=== PATIENT | female | born 1950 | race Two or more races ===

== ENCOUNTER 2022-04-20 15:25 | Inpatient (IN) | payer OTHER ==
[~2022-04-20] VITALS: Ht 152.4 cm; Wt 82.1 kg
--- NOTE | 2022-04-20 15:42 | NUR ---
PTE REFIERE QUE VINO DE LA OFICINA DEL DR ANTHONY POR QUE TIENE EL PULSO ELEVADO, PTE PRESENTA REFERIDO MEDICO DEL DR ANTHONY
--- NOTE | 2022-04-20 17:23 | NUR ---
IV LINE IS STARTED ON PATIENT'S LEFT HAND AND LAB SAMPLES ARE TAKEN AND SALINE LOCK IS PLACED. IV MEDS ARE ADMINISTERED ACCORIDNGLY. PATIENT IS IN BED WITH RAILINGS UP AND CONNECTED TO TELEMETRY AND OXIMETRY. PATIENT HAS PENDING REEVALUTION AND REMAINS IN OBSERVATION FOR ANY CHANGES TO HER CONDITION.
== END 2022-04-23 12:08 | disposition home or self-care (01) | DRG 308 ==
LOC: ER 15:25 → MEDJ 20:23
PROVIDERS: ADMIT Internal Medicine; ATTEND Internal Medicine
PROC: 4A12X4Z Monitoring of Cardiac Electrical Activity, External Approach (ICD-10-PCS; principal; 2022-04-20)
PROC: B24BZZZ Ultrasonography of Heart with Aorta (ICD-10-PCS; 2022-04-20)
DX: I48.0 Paroxysmal atrial fibrillation (principal); I50.33 Acute on chronic diastolic (congestive) heart failure; I25.10 Atherosclerotic heart disease of native coronary artery without angina pectoris; E78.5 Hyperlipidemia, unspecified; Z20.822 Contact with and (suspected) exposure to COVID-19; I12.9 Hypertensive chronic kidney disease with stage 1 through stage 4 chronic kidney disease, or unspecified chronic kidney disease; N18.9 Chronic kidney disease, unspecified

== ENCOUNTER 2022-07-18 07:36 | Outpatient (CLI) | payer OTHER | END 2022-07-18 07:37 | disposition home or self-care (01) | LOC: NUCLEAR 07:36 | PROVIDERS: ATTEND Internal Medicine | DX: I25.118 Atherosclerotic heart disease of native coronary artery with other forms of angina pectoris (principal); I11.0 Hypertensive heart disease with heart failure; I48.0 Paroxysmal atrial fibrillation; I50.1 Left ventricular failure, unspecified | CPT/HCPCS: 78452; 93017; A9500; J0153 ==

== ENCOUNTER 2022-09-07 12:44 | Emergency (ER) | payer OTHER ==
[~2022-09-07] VITALS: Ht 152.4 cm; Wt 85.3 kg
== END 2022-09-07 16:11 | disposition home or self-care (01) ==
LOC: ER 12:44
DX: M12.562 Traumatic arthropathy, left knee (principal); M12.561 Traumatic arthropathy, right knee; T14.90XS Injury, unspecified, sequela; W18.39XS Other fall on same level, sequela

== ENCOUNTER 2022-09-14 16:26 | Emergency (ER) | payer OTHER ==
[~2022-09-14] VITALS: Ht 160 cm; Wt 86.2 kg
[2022-09-14] MEDS ORDERED: ATORVASTATIN CA40 MG (17:21)
[2022-09-14] MEDS ORDERED: LISINOPRIL5 MG (17:22)
[2022-09-14] MEDS ORDERED: AMIODARONE HCL100 MG (17:22)
[2022-09-14] MEDS ORDERED: FUROSEMIDE20 MG (17:22)
[2022-09-14] MEDS ORDERED: METOPROLOL TART50 MG (17:23)
[2022-09-14] MEDS ORDERED: XARELTO20 MG (17:23)
== END 2022-09-14 20:04 | disposition home or self-care (01) ==
LOC: ER 16:26
DX: F41.8 Other specified anxiety disorders (principal); I10 Essential (primary) hypertension

== ENCOUNTER 2022-09-17 08:22 | Inpatient (IN) | payer OTHER ==
[~2022-09-17] VITALS: Ht 152.4 cm; Wt 89.8 kg
[~2022-09-17 08:22] MED LIST: AMIODARONE HCL100 MG; ATORVASTATIN CA40 MG; FUROSEMIDE20 MG; LISINOPRIL5 MG; METOPROLOL TART50 MG; XARELTO20 MG
== END 2022-09-22 20:32 | disposition home or self-care (01) | DRG 343 ==
LOC: ER 08:22 → SURH 19:15 → SURG 19:15 → SURH 19:44
PROVIDERS: Surgery; ADMIT Internal Medicine; ATTEND Internal Medicine
PROC: BW21ZZZ Computerized Tomography (CT Scan) of Abdomen and Pelvis (ICD-10-PCS; 2022-09-17)
PROC: B246ZZZ Ultrasonography of Right and Left Heart (ICD-10-PCS; 2022-09-18)
PROC: 0DTJ4ZZ Resection of Appendix, Percutaneous Endoscopic Approach (ICD-10-PCS; principal; 2022-09-20 19:15)
DX: K35.891 Other acute appendicitis without perforation, with gangrene (principal); I48.91 Unspecified atrial fibrillation; I11.0 Hypertensive heart disease with heart failure; E78.49 Other hyperlipidemia; N18.9 Chronic kidney disease, unspecified

== ENCOUNTER 2022-11-29 17:53 | Emergency (ER) | payer OTHER ==
[~2022-11-29] VITALS: Ht 152.4 cm; Wt 85.3 kg
[~2022-11-29 17:53] MED LIST changes: +TUSNEL LIQUID178 ML PO; +XOPENEX CO1.25 MG/0. IH; +ZITHROMAX500 MG PO
[2022-11-29] MEDS ORDERED: XARELTO20 MG PO (18:13)
[2022-11-29 20:53] LABS: INR 1.6
[2022-11-29 21:00] LABS: D DIMER 0.59 MG/L
[2022-11-29 21:04] LABS: PROTHROMBIN TIME 16.2 SECONDS (9.0-11.5)
[2022-11-29 21:05] LABS: PARTIAL THROMBOPLASTIN TIME 40.5 SECONDS (22.0-34.0)
== END 2022-11-29 21:54 | disposition home or self-care (01) ==
LOC: ER 17:53
PROVIDERS: General Practice
DX: M79.604 Pain in right leg (principal); Z88.6 Allergy status to analgesic agent
CPT/HCPCS: 36415; 96372; 99283; J2360

== ENCOUNTER 2023-05-11 15:57 | Emergency (ER) | payer OTHER ==
[~2023-05-11] VITALS: Ht 152.4 cm; Wt 81.6 kg
[~2023-05-11 15:57] MED LIST changes: +XARELTO20 MG PO
[2023-05-11] MEDS ORDERED: LISINOPRIL10 MG PO (16:53)
[2023-05-11] MEDS ORDERED: ZESTRIL10 M1 (16:57)
[2023-05-11] MEDS ORDERED: TOPROL XL25 M1 (16:57)
[2023-05-11] MEDS ORDERED: LASIX20 MG (16:57)
[2023-05-11] MEDS ORDERED: ATORVASTATIN CA10 MG PO (16:58)
[2023-05-11 18:31] LABS: HEMATOCRIT 42.3 % (36.0-45.00); HEMOGLOBIN 14.2 g/dL (12.0-15.00); MEAN CELL VOLUME 94.3 fL (80.00-100.00); MEAN CORPUSCULAR HEMOGLOBIN 31.8 pg (27.00-32.0); MEAN CORPUSCULAR HGB CONC 33.7 g/dl (32.0-36.0); PLATELET COUNT 177 K/uL (150-450); RED BLOOD COUNT 4.48 M/uL (4.00-6.00); RED CELL DISTRIBUTION WIDTH 15.8 % (11.5-14.5)
[2023-05-11 18:37] LABS: CALCIUM 9.6 mg/dL (8.5-10.1); CREATININE SERUM 1.38 mg/dL (0.55-1.02); GFR 37.37; POTASSIUM 5.02 mEq/L (3.5-5.1)
== END 2023-05-11 21:36 | disposition home or self-care (01) ==
LOC: ER 15:58
PROVIDERS: Emergency Medicine
DX: R53.81 Other malaise (principal); R05.9 Cough, unspecified; R06.02 Shortness of breath; I10 Essential (primary) hypertension; Z88.6 Allergy status to analgesic agent

== ENCOUNTER 2023-09-26 06:26 | Inpatient (IN) | payer OTHER ==
[~2023-09-26] VITALS: Ht 157.5 cm; Wt 90.7 kg
[~2023-09-26 06:26] MED LIST changes: +AMIODARONE HCL200 MG PO; +ATORVASTATIN CA10 MG PO; +DOLOGESIC-DF 51 EACH PO; +FUROSEMIDE20 MG PO; +LASIX20 MG; +LIPITOR40 M1 PO; +LISINOPRIL10 MG PO; +TOPROL XL25 M1; +TOPROL XL50 M1 PO; +XARELTO15 MG PO; +XARELTO20 M1 PO; +ZESTRIL10 M1
[2023-09-26] MEDS ORDERED: FUROsemide 40 MG/4 ML VIAL ONE (06:59)
[2023-09-26] MEDS ORDERED: NITROGLYCERIN IN 5 % DEXTROSE 50 MG/250 ML BOTTLE IV ONE (06:59)
[2023-09-26] MEDS ORDERED: FUROsemide 40 MG/4 ML VIAL IV STA (06:59)
[2023-09-26] MEDS ORDERED: NITROGLYCERIN 250 ML IV SCH (07:00)
[2023-09-26 07:10] LABS: ABG PH 7.433 (7.35-7.45); ABG PO2 64.7 mmHg (80-100); ABG pCO2 36.6 mmHg (35-45); BASE EXCESS 0 mmol/l; BICARBONATE 23.9 mmol/l (23-25)
[2023-09-26 07:25] LABS: HEMATOCRIT 45.5 % (36.0-45.00); HEMOGLOBIN 15.1 g/dL (12.0-15.00); MEAN CELL VOLUME 96.9 fL (80.00-100.00); MEAN CORPUSCULAR HEMOGLOBIN 32.3 pg (27.00-32.0); MEAN CORPUSCULAR HGB CONC 33.3 g/dl (32.0-36.0); PLATELET COUNT 202 K/uL (150-450); RED BLOOD COUNT 4.69 M/uL (4.00-6.00); RED CELL DISTRIBUTION WIDTH 14.1 % (11.5-14.5)
[2023-09-26 07:58] LABS: URINE BACTERIA 11.3 uL (0.0-1933); URINE RBC 16.7 uL (0.0-20.8); URINE WBC 1.8 uL (0.0-23.2)
[2023-09-26 08:04] LABS: ALBUMIN 3.9 gm/dL (3.4-5.0); BILIRUBIN TOTAL 1.01 mg/dL (0.3-1.2); CALCIUM 9.8 mg/dL (8.5-10.1); CREATININE SERUM 1.5 mg/dL (0.55-1.02); GFR 33.85; GLOBULINA 3.7 G/DL (2.4-3.5); POTASSIUM 3.55 mEq/L (3.5-5.1); TOTAL PROTEIN 7.6 gm/dL (6.4-8.2)
[2023-09-26 08:05] LABS: URINE BILIRRUBIN NEGATIVE (NEGATIVE); URINE BLOOD TRACE; URINE GLUCOSE NEGATIVE (NEGATIVE); URINE KETONE NEGATIVE (NEGATIVE); URINE LEUKOCYTE NEGATIVE; URINE NITRATE NEGATIVE; URINE PROTEIN 30 (NEGATIVE); URINE UROBILINOGEN 0.2 E.U./dl
[2023-09-26 08:07] LABS: INR 1.85
[2023-09-26 08:09] LABS: allen test SATISFACTORY; o2 21 %; puncture site RADIAL LEFT
[2023-09-26 08:09] LABS: URINE APPEARANCE CLEAR; URINE COLOR YELLOW
[2023-09-26 08:31] LABS: PARTIAL THROMBOPLASTIN TIME 45.8 SECONDS (22.0-34.0); PROTHROMBIN TIME 19.3 SECONDS (9.0-11.5)
[2023-09-26] MEDS ORDERED: FUROsemide 20 MG/2 ML VIAL IV SCH (09:00)
[2023-09-26] MEDS ORDERED: AMIODARONE HCL 200 MG TABLET PO SCH (09:00)
[2023-09-26] MEDS ORDERED: NITROGLYCERIN IN 5 % DEXTROSE 250 ML IV SCH ×2 (09:15→10:00)
[2023-09-26] MEDS ORDERED: FAMOTIDINE/PF 20 MG in 0.9 % SODIUM CHLORIDE 100 ML IV SCH (10:07)
[2023-09-26] MEDS ORDERED: 0.9 % SODIUM CHLORIDE 1,000 ML IV SCH (10:15)
[2023-09-26] MEDS ORDERED: RIVAROXABAN 15 MG TABLET PO SCH (10:22)
[2023-09-26] MEDS ORDERED: CEFTRIAXONE SODIUM 2,000 MG in 0.9 % SODIUM CHLORIDE 100 ML IV SCH (10:34)
[2023-09-26] MEDS ORDERED: CEFTRIAXONE SODIUM 2,000 MG VIAL ONE (11:35)
[2023-09-26] MEDS ORDERED: FAMOTIDINE/PF 20 MG/2 ML VIAL ONE (11:40)
[2023-09-26 13:20] LABS: ALBUMIN 3.8 gm/dL (3.4-5.0); CALCIUM 9.8 mg/dL (8.5-10.1); CHOL HDL RATIO 2.3 (0-5.0); CREATININE SERUM 1.38 mg/dL (0.55-1.02); GFR 37.27; MAGNESIUM 1.9 mg/dL (1.8-2.4); POTASSIUM 3.71 mEq/L (3.5-5.1)
[2023-09-26] MEDS ORDERED: AMLODIPINE BESYLATE 5 MG TABLET PO ONE (14:30)
[2023-09-26] MEDS ORDERED: hydrALAZINE HCL 25 MG TABLET PO SCH (17:00)
[2023-09-26] MEDS ORDERED: AMLODIPINE BESYLATE 5 MG TABLET PO SCH (21:00)
[2023-09-26] MEDS ORDERED: CARVEDILOL 3.125 MG TABLET PO SCH (21:00)
[2023-09-27] MEDS ORDERED: FAMOTIDINE/PF 20 MG/2 ML VIAL ONE (08:27)
[2023-09-27] MEDS ORDERED: FUROsemide 20 MG/2 ML VIAL IV SCH ×2 (09:00)
[2023-09-27] MEDS ORDERED: VANCOMYCIN HCL 1,000 MG VIAL IV SCH (17:00)
[2023-09-27] MEDS ORDERED: CEFEPIME HCL 2,000 MG VIAL IV SCH (21:00)
[2023-09-28 06:25] LABS: HEMATOCRIT 43.3 % (36.0-45.00); HEMOGLOBIN 14.7 g/dL (12.0-15.00); MEAN CELL VOLUME 95.1 fL (80.00-100.00); MEAN CORPUSCULAR HEMOGLOBIN 32.4 pg (27.00-32.0); PLATELET COUNT 162 K/uL (150-450); RED BLOOD COUNT 4.55 M/uL (4.00-6.00)
[2023-09-28 07:06] LABS: BILIRUBIN TOTAL 1.68 mg/dL (0.3-1.2); CREATININE SERUM 1.18 mg/dL (0.55-1.02); GFR 44.65; GLOBULINA 3.3 G/DL (2.4-3.5); MAGNESIUM 1.7 mg/dL (1.8-2.4); PHOSPHOROUS 3.4 mg/dL (2.5-4.9); POTASSIUM 3.87 mEq/L (3.5-5.1); TOTAL PROTEIN 6.3 gm/dL (6.4-8.2)
[2023-09-28 07:07] LABS: C-REACTIVE PROTEIN 8.89 MG/DL (0.00-0.29)
[2023-09-28] MEDS ORDERED: FUROsemide 20 MG/2 ML VIAL IV SCH (09:00)
[2023-09-28] MEDS ORDERED: CLOPIDOGREL BISULFATE 75 MG TABLET PO SCH (17:00)
[2023-09-29] MEDS ORDERED: FAMOtidine 20 MG TABLET PO SCH (09:00)
[2023-09-29] MEDS ORDERED: ISOSORBIDE MONONITRATE 30 MG TABLET PO SCH (09:00)
[2023-09-30 08:18] LABS: HEMATOCRIT 40.8 % (36.0-45.00); HEMOGLOBIN 13.7 g/dL (12.0-15.00); MEAN CELL VOLUME 95.4 fL (80.00-100.00); MEAN CORPUSCULAR HGB CONC 33.6 g/dl (32.0-36.0); PLATELET COUNT 171 K/uL (150-450); RED BLOOD COUNT 4.28 M/uL (4.00-6.00)
[2023-09-30 08:45] LABS: ALBUMIN 2.5 gm/dL (3.4-5.0); BILIRUBIN TOTAL 0.99 mg/dL (0.3-1.2); CREATININE SERUM 1.77 mg/dL (0.55-1.02); GFR 27.97; GLOBULINA 3.1 G/DL (2.4-3.5); POTASSIUM 4.47 mEq/L (3.5-5.1); TOTAL PROTEIN 5.6 gm/dL (6.4-8.2)
[2023-09-30 08:56] LABS: C-REACTIVE PROTEIN 8.1 MG/DL (0.00-0.29)
[2023-10-01] MEDS ORDERED: LACTULOSE 20 G/30 ML BLIST.PACK PO SCH (17:45)
[2023-10-02] MEDS ORDERED: DOCUSATE CALCIUM 240 MG CAPSULE PO PRN (15:00)
[2023-10-03 08:50] LABS: ALBUMIN 2.5 gm/dL (3.4-5.0); BILIRUBIN TOTAL 0.89 mg/dL (0.3-1.2); CALCIUM 9.2 mg/dL (8.5-10.1); CREATININE SERUM 1.22 mg/dL (0.55-1.02); GFR 42.97; GLOBULINA 3.4 G/DL (2.4-3.5); POTASSIUM 4.11 mEq/L (3.5-5.1); TOTAL PROTEIN 5.9 gm/dL (6.4-8.2)
== END 2023-10-03 14:35 | disposition designated cancer center or children's hospital (05) | DRG 281 ==
LOC: ER 06:28 → ICU 10:36 → SEC-K 10:36 → MEDJ 12:01 → ICU-2 14:35 → ICU 09-27 03:52 → MEDJ 10-01 19:28
PROVIDERS: General Practice; Internal Medicine Infectious Disease; ADMIT Internal Medicine; ATTEND Internal Medicine
PROC: B24BZZZ Ultrasonography of Heart with Aorta (ICD-10-PCS; principal; 2023-09-26)
PROC: 4A12X4Z Monitoring of Cardiac Electrical Activity, External Approach (ICD-10-PCS; 2023-10-01)
DX: I11.0 Hypertensive heart disease with heart failure (principal); L03.115 Cellulitis of right lower limb; I21.4 Non-ST elevation (NSTEMI) myocardial infarction; L03.116 Cellulitis of left lower limb; I50.9 Heart failure, unspecified; E78.5 Hyperlipidemia, unspecified; E66.9 Obesity, unspecified; I48.91 Unspecified atrial fibrillation; I73.9 Peripheral vascular disease, unspecified

== ENCOUNTER 2023-12-07 17:30 | Inpatient (IN) | payer OTHER ==
[~2023-12-07] VITALS: Ht 157.5 cm; Wt 108.9 kg
--- NOTE | 2023-12-07 17:46 | NUR ---
PTE ALERTA Y ORIENTADA X 3 ESFERAS QUIEN REFIERE DESDE HACE 2 MENEZES ASMA Y PRESION ELEVADA.AL MOMENTO PTE [place] MUSCULOS ACCESORIOS PARA RESPIRAR Y NO HABLA EN ORACIONES COMPLETAS.SE AIDAN BP MANUAL 150/80.SE NOTIFICA A DR ANN Y SE UBICA EN AU.
[2023-12-07] MEDS ORDERED: LEVALBUTEROL HCL 0.63 MG/3 ML SOLUTION IH ONE (18:00)
--- NOTE | 2023-12-07 18:08 | NUR ---
SE ORIENTA A PACIENTE SOBRE TX MEDICO, REFIERE ENTENDER. SE REALIZAN MUESTRAS DE LABORATORIO BAJO MEDIDAS ASEPTICAS. SE NOTIFICA TERAPIA RESPIRATORIA Y ABG. SE COORDINA CHARLY X. PACIENTE MANEJADA POR . PENDIENTE RE-EVALUACION MEDICA.
[2023-12-07 18:13] LABS: HEMATOCRIT 39.5 % (36.0-45.00); HEMOGLOBIN 13.3 g/dL (12.0-15.00); MEAN CELL VOLUME 95.1 fL (80.00-100.00); MEAN CORPUSCULAR HEMOGLOBIN 32.1 pg (27.00-32.0); MEAN CORPUSCULAR HGB CONC 33.7 g/dl (32.0-36.0); PLATELET COUNT 204 K/uL (150-450); RED BLOOD COUNT 4.16 M/uL (4.00-6.00); RED CELL DISTRIBUTION WIDTH 15.7 % (11.5-14.5)
[2023-12-07 18:45] LABS: ALBUMIN 3.5 gm/dL (3.4-5.0); BILIRUBIN TOTAL 0.8 mg/dL (0.3-1.2); CALCIUM 9.6 mg/dL (8.5-10.1); CREATININE SERUM 1.28 mg/dL (0.55-1.02); GFR 40.65; GLOBULINA 3.4 G/DL (2.4-3.5); POTASSIUM 4.85 mEq/L (3.5-5.1); TOTAL PROTEIN 6.9 gm/dL (6.4-8.2)
--- NOTE | 2023-12-07 19:06 | NUR ---
SE UBICA PTE EN UNIDAD DE CHEST PAIN #18, EN CAMA BAJA DIONI BARANDAS ELEVADAS POR SEGURIDAD. SE CONECTA A MONITOR CARDIACO Y OXIMETRIA DE PULSO CONTINUA. SE CANALIZA X2 EN ANTE BRAZO DERECHO ANGIO #22 Y EN MANO IZQUIERDA ANGIO #22.
--- NOTE | 2023-12-07 20:10 | NUR ---
SE NOTIFICA A DR ANN BP 190/100 MMHG. SE ADMINISTRA LASIX 40MG Y SE INSERFA GÓMEZ BAJO MEDIDAS ESTERILES
[2023-12-07] MEDS ORDERED: FUROsemide 40 MG/4 ML VIAL IV ONE (20:15)
[2023-12-07] MEDS ORDERED: ENALAPRILAT DIHYDRATE 2.5 MG/2 ML VIAL IV ONE (20:30)
[2023-12-07 20:34] LABS: ABG PH 7.346 (7.35-7.45); ABG PO2 88.8 mmHg (80-100); ABG pCO2 48.6 mmHg (35-45); BASE EXCESS -0.3 mmol/l; SaO2 96.2 %; Tco2 27.5 mmol/l
[2023-12-07 20:36] LABS: allen test SATISFACTORY; o2 50 %; puncture site RADIAL RIGHT
[2023-12-07 20:58] LABS: INR 1.27; PARTIAL THROMBOPLASTIN TIME 33.5 SECONDS (22.0-34.0); PROTHROMBIN TIME 13.6 SECONDS (9.0-11.5)
[2023-12-07 21:01] LABS: PH,URINE 5.5 (5.0-8.0); URINE APPEARANCE Clear; URINE BILIRRUBIN Negative (NEGATIVE); URINE BLOOD Negative; URINE COLOR Yellow; URINE GLUCOSE Negative (NEGATIVE); URINE KETONE Negative (NEGATIVE); URINE LEUKOCYTE Negative; URINE NITRATE Negative
[2023-12-07 21:04] LABS: URINE BACTERIA 28.9 uL (0.0-1933); URINE EPITHELIAL CELLS 10.9 uL (0.0-38.8); URINE RBC 5.4 uL (0.0-20.8); URINE WBC 4.1 uL (0.0-23.2)
[2023-12-07 21:16] LABS: URINE CAST 0.91 uL (0.0-1.40); URINE PROTEIN 100 (NEGATIVE)
[2023-12-07] MEDS ORDERED: INSULIN LISPRO 1,000 UNIT/10 ML UNITS SUBCUTANEO PRN (23:00)
[2023-12-07] MEDS ORDERED: DEXTROSE 50 % IN WATER 0.5 G/ML DISP.SYRIN IV PRN (23:00)
[2023-12-07] MEDS ORDERED: NITROGLYCERIN IN 5 % DEXTROSE 250 ML IV SCH (23:08)
[2023-12-07] MEDS ORDERED: ATORVASTATIN CALCIUM 40 MG TABLET PO SCH (23:09)
[2023-12-07] MEDS ORDERED: CEFTRIAXONE SODIUM 1,000 MG VIAL IV SCH (23:11)
[2023-12-07] MEDS ORDERED: MORPHINE SULFATE 2 MG/ML CARTRIDGE IV PRN (23:15)
[2023-12-07] MEDS ORDERED: ONDANSETRON HCL 4 MG in DEXTROSE 5 % IN WATER 50 ML IV PRN (23:15)
[2023-12-07] MEDS ORDERED: ACETAMINOPHEN 500 MG GEL..CAP PO PRN (23:15)
[2023-12-08] VITALS (16 sets, daily range): BP systolic 119–146; BP diastolic 80–102; O2SAT 96–99
[2023-12-08] MEDS ORDERED: IPRATROPIUM BROMIDE 0.5 MG/2.5 ML AMPUL.NEB IH SCH
[2023-12-08] MEDS ORDERED: METHYLPREDNISOLONE SOD SUCC 40 MG VIAL IV SCH (01:00)
[2023-12-08] MEDS ORDERED: LEVALBUTEROL HCL 1.25 MG/3 ML SOLUTION IH SCH (01:00)
[2023-12-08 01:14] LABS: ABG PH 7.399 (7.35-7.45); ABG pCO2 50.4 mmHg (35-45); BASE EXCESS 4.5 mmol/l; BICARBONATE 30.5 mmol/l (23-25); SaO2 92.3 %
[2023-12-08 05:57] LABS: HEMATOCRIT 40.2 % (36.0-45.00); HEMOGLOBIN 13.4 g/dL (12.0-15.00); MEAN CORPUSCULAR HEMOGLOBIN 31.7 pg (27.00-32.0); MEAN CORPUSCULAR HGB CONC 33.4 g/dl (32.0-36.0); PLATELET COUNT 196 K/uL (150-450); RED BLOOD COUNT 4.23 M/uL (4.00-6.00); RED CELL DISTRIBUTION WIDTH 15.3 % (11.5-14.5)
[2023-12-08 06:11] LABS: INR 1.18; PARTIAL THROMBOPLASTIN TIME 30.7 SECONDS (22.0-34.0); PROTHROMBIN TIME 12.7 SECONDS (9.0-11.5)
[2023-12-08 06:18] LABS: ALBUMIN 3.3 gm/dL (3.4-5.0); BILIRUBIN TOTAL 0.84 mg/dL (0.3-1.2); BILIRUBIN,CONJUGATED 0.32 mg/dL (0.0-0.2); BILIRUBIN,UNCONJUGATED 0.52 mg/dL (0.0-0.6); CHOL HDL RATIO 2.4 (0-5.0); CREATININE SERUM 0.91 mg/dL (0.55-1.02); GFR 60.26; GLOBULINA 3.5 G/DL (2.4-3.5); POTASSIUM 4.04 mEq/L (3.5-5.1); TOTAL PROTEIN 6.8 gm/dL (6.4-8.2)
[2023-12-08 06:19] LABS: C-REACTIVE PROTEIN 1.48 MG/DL (0.00-0.29)
[2023-12-08 06:20] LABS: CKMB 3.4 NG/ML (0.5-3.6)
[2023-12-08 06:24] LABS: ERYTHROCYTE SEDIMENTATION RATE 43 mm/hr
[2023-12-08 06:33] LABS: allen test SATISFACTORY; o2 21 %; puncture site RADIAL RIGHT
[2023-12-08 08:46] LABS: URINE APPEARANCE Clear; URINE BILIRRUBIN Negative (NEGATIVE); URINE BLOOD Large; URINE COLOR Yellow; URINE GLUCOSE Negative (NEGATIVE); URINE KETONE Negative (NEGATIVE); URINE LEUKOCYTE Negative; URINE NITRATE Negative; URINE PROTEIN Trace (NEGATIVE)
[2023-12-08 08:47] LABS: URINE BACTERIA 41.5 uL (0.0-1933); URINE RBC 1795.9 uL (0.0-20.8); URINE WBC 8.4 uL (0.0-23.2)
[2023-12-08 08:54] LABS: URINE CAST 0.45 uL (0.0-1.40)
[2023-12-08] MEDS ORDERED: FUROsemide 20 MG/2 ML VIAL IV SCH (09:00)
[2023-12-08] MEDS ORDERED: FAMOTIDINE/PF 20 MG in 0.9 % SODIUM CHLORIDE 8 ML IV PUSH SCH (09:00)
[2023-12-08] MEDS ORDERED: AMIODARONE HCL 200 MG TABLET PO SCH (09:00)
[2023-12-08] MEDS ORDERED: RIVAROXABAN 15 MG TABLET PO SCH (09:00)
[2023-12-08] MEDS ORDERED: METOPROLOL TARTRATE 50 MG TABLET PO SCH (09:00)
[2023-12-09] VITALS (10 sets, daily range): BP systolic 95–126; BP diastolic 62–75; O2SAT 90–98
[2023-12-10] MEDS ORDERED: HALOPERIDOL LACTATE 2 MG/ML ML PO ONE ×2 (02:45→05:30)
[2023-12-10 06:12] VITALS: O2SAT 87
[2023-12-10] MEDS ORDERED: LORazepam 1 MG TABLET PO PRN (07:00)
[2023-12-10] MEDS ORDERED: FUROsemide 20 MG/2 ML VIAL IV SCH (09:00)
[2023-12-10] MEDS ORDERED: NITROGLYCERIN IN 5 % DEXTROSE 250 ML IV SCH (09:00)
[2023-12-10 11:00] VITALS: BP 140/93; O2SAT 92
[2023-12-10 18:32] VITALS: BP 140/83; O2SAT 98
[2023-12-11] VITALS (9 sets, daily range): BP systolic 100–144; BP diastolic 74–79; O2SAT 94–100
[2023-12-12] VITALS (8 sets, daily range): BP systolic 100–152; BP diastolic 68–82; O2SAT 90–100
[2023-12-12] MEDS ORDERED: ISOSORBIDE MONONITRATE 30 MG TABLET PO NR (13:00)
[2023-12-12 21:02] LABS: ABG PH 7.454 (7.35-7.45); ABG pCO2 55.5 mmHg (35-45)
[2023-12-12 21:03] LABS: ABG PO2 56.5 mmHg (80-100); BASE EXCESS 11.7 mmol/l; SaO2 91.4 %; Tco2 39.7 mmol/l; allen test SATISFACTORY; o2 21 %; puncture site RADIAL RIGHT
[2023-12-13] VITALS (9 sets, daily range): BP systolic 90–123; BP diastolic 70–91; O2SAT 90–100
[2023-12-13] MEDS ORDERED: ISOSORBIDE MONONITRATE 30 MG TABLET PO SCH (09:00)
[2023-12-13 13:49] LABS: ABG PO2 61.6 mmHg (80-100); ABG pCO2 45.4 mmHg (35-45); BASE EXCESS 10.9 mmol/l; BICARBONATE 35.4 mmol/l (23-25); SaO2 94.2 %; Tco2 36.8 mmol/l; allen test SATISFACTORY; o2 21 %; puncture site RADIAL LEFT
[2023-12-14 02:00] VITALS: O2SAT 99
[2023-12-14 02:39] VITALS: BP 100/70; O2SAT 99
[2023-12-14 06:46] VITALS: O2SAT 100
[2023-12-14 08:11] VITALS: BP 115/83; O2SAT 99
[2023-12-14] MEDS ORDERED: FUROsemide 20 MG TABLET PO SCH (09:00)
[2023-12-14 11:34] VITALS: O2SAT 100
[2023-12-14 13:30] VITALS: O2SAT 98
== END 2023-12-14 17:17 | disposition home or self-care (01) | DRG 291 ==
LOC: ER 17:32 → ICU-2 23:36 → MEDI 12-08 11:41
PROVIDERS: Emergency Medicine; General Practice; Internal Medicine; ADMIT Internal Medicine; ATTEND Internal Medicine
PROC: B24BZZZ Ultrasonography of Heart with Aorta (ICD-10-PCS; 2023-12-07)
PROC: 4A12X4Z Monitoring of Cardiac Electrical Activity, External Approach (ICD-10-PCS; principal; 2023-12-08)
PROC: BW28ZZZ Computerized Tomography (CT Scan) of Head (ICD-10-PCS; 2023-12-10)
DX: I11.0 Hypertensive heart disease with heart failure (principal); I50.33 Acute on chronic diastolic (congestive) heart failure; J81.1 Chronic pulmonary edema; R09.02 Hypoxemia; E78.5 Hyperlipidemia, unspecified; I48.0 Paroxysmal atrial fibrillation; R41.82 Altered mental status, unspecified; F43.20 Adjustment disorder, unspecified; I25.10 Atherosclerotic heart disease of native coronary artery without angina pectoris

== ENCOUNTER 2024-01-19 14:50 | Inpatient (IN) | payer OTHER ==
[~2024-01-19] VITALS: Ht 152.4 cm; Wt 86.2 kg
[2024-01-19] MEDS ORDERED: 0.9 % SODIUM CHLORIDE 1,000 ML IV ONE (17:00)
[2024-01-19] MEDS ORDERED: FAMOtidine 10 MG/ML (4ML VIAL) IV ONE (17:00)
[2024-01-19] MEDS ORDERED: FAMOTIDINE/PF 20 MG/2 ML VIAL ONE (17:00)
[2024-01-19 17:33] LABS: MEAN CELL VOLUME 96.5 fL (80.00-100.00); MEAN CORPUSCULAR HGB CONC 32.9 g/dl (32.0-36.0); PLATELET COUNT 263 K/uL (150-450); RED BLOOD COUNT 2.23 M/uL (4.00-6.00); RED CELL DISTRIBUTION WIDTH 15.9 % (11.5-14.5)
[2024-01-19 17:37] LABS: HEMATOCRIT 21.6 % (36.0-45.00); MEAN CORPUSCULAR HEMOGLOBIN 31.8 pg (27.00-32.0)
[2024-01-19 17:38] LABS: HEMOGLOBIN 7.1 g/dL (12.0-15.00)
[2024-01-19 17:53] LABS: BILIRUBIN TOTAL 0.62 mg/dL (0.3-1.2); CALCIUM 9.1 mg/dL (8.5-10.1); CREATININE SERUM 1.56 mg/dL (0.55-1.02); GFR 32.35; POTASSIUM 4.63 mEq/L (3.5-5.1)
[2024-01-19 18:41] LABS: INR 1.37; PARTIAL THROMBOPLASTIN TIME 26.6 SECONDS (22.0-34.0); PROTHROMBIN TIME 14.6 SECONDS (9.0-11.5)
[2024-01-19 18:47] LABS: ABG PH 7.462 (7.35-7.45); ABG PO2 78.5 mmHg (80-100); ABG pCO2 34.7 mmHg (35-45); BICARBONATE 24.2 mmol/l (23-25); SaO2 96.3 %; Tco2 25.3 mmol/l; allen test SATISFACTORY; puncture site RADIAL RIGHT
[2024-01-19 18:48] LABS: o2 21 %
[2024-01-19 20:23] LABS: URINE APPEARANCE Clear; URINE BILIRRUBIN Negative (NEGATIVE); URINE BLOOD Negative; URINE COLOR Yellow; URINE GLUCOSE Negative (NEGATIVE); URINE KETONE Negative (NEGATIVE); URINE LEUKOCYTE Negative; URINE NITRATE Negative; URINE PROTEIN Negative (NEGATIVE)
[2024-01-19 20:27] LABS: URINE BACTERIA 221.2 uL (0.0-1933); URINE EPITHELIAL CELLS 5.3 uL (0.0-38.8)
[2024-01-19 20:31] LABS: URINE CAST 0.14 uL (0.0-1.40); URINE RBC 1.1 uL (0.0-20.8)
[2024-01-19] MEDS ORDERED: ACETAMINOPHEN 325 MG TABLET PO PRN (22:00)
[2024-01-19] MEDS ORDERED: 0.9 % SODIUM CHLORIDE 1,000 ML IV SCH (22:00)
[2024-01-20 06:20] VITALS: BP 82/49; O2SAT 97
[2024-01-20] MEDS ORDERED: FUROsemide 20 MG TABLET PO SCH (09:00)
[2024-01-20] MEDS ORDERED: SOD FERRIC GLUC COMPLX/SUCROSE 62.5 MG in 0.9 % SODIUM CHLORIDE 50 ML IV SCH (09:00)
[2024-01-20] MEDS ORDERED: AMIODARONE HCL 200 MG TABLET PO SCH (09:00)
[2024-01-20] MEDS ORDERED: PANTOPRAZOLE SODIUM 40 MG/VIAL VIAL IV SCH (09:00)
[2024-01-20] MEDS ORDERED: RIVAROXABAN 15 MG TABLET PO SCH (09:00)
[2024-01-20] MEDS ORDERED: METOPROLOL TARTRATE 50 MG TABLET PO SCH (09:00)
[2024-01-20 09:30] VITALS: BP 80/40; O2SAT 95
[2024-01-20] MEDS ORDERED: ATORVASTATIN CALCIUM 40 MG TABLET PO SCH (17:00)
[2024-01-20 18:53] VITALS: BP 88/50; O2SAT 95
[2024-01-21 00:40] VITALS: BP 99/62; O2SAT 98
[2024-01-21 08:46] VITALS: BP 99/58; O2SAT 100
[2024-01-21 14:29] LABS: CALCIUM 8.4 mg/dL (8.5-10.1); CREATININE SERUM 1.36 mg/dL (0.55-1.02); GFR 37.9; POTASSIUM 4.32 mEq/L (3.5-5.1)
[2024-01-21] MEDS ORDERED: SODIUM CHLORIDE 0.45 % 1,000 ML IV SCH (17:00)
[2024-01-21 18:55] VITALS: BP 140/70
[2024-01-22 01:58] VITALS: BP 121/57; O2SAT 98
[2024-01-22 07:15] LABS: HEMATOCRIT 27.7 % (36.0-45.00); MEAN CELL VOLUME 93.5 fL (80.00-100.00); MEAN CORPUSCULAR HGB CONC 33.7 g/dl (32.0-36.0); PLATELET COUNT 184 K/uL (150-450); RED BLOOD COUNT 2.96 M/uL (4.00-6.00); RED CELL DISTRIBUTION WIDTH 15.7 % (11.5-14.5)
[2024-01-22 07:16] LABS: HEMOGLOBIN 9.3 g/dL (12.0-15.00); MEAN CORPUSCULAR HEMOGLOBIN 31.4 pg (27.00-32.0)
[2024-01-22 07:41] VITALS: BP 108/75
[2024-01-22 08:31] LABS: FERRITIN 93.6 NG/ML (8-252)
[2024-01-22 09:01] LABS: FOLIC ACID 13.84 ng/ml (4.78-20)
[2024-01-22 17:28] VITALS: BP 120/80; O2SAT 96
[2024-01-23 01:32] VITALS: BP 92/59; O2SAT 100
[2024-01-23 06:39] LABS: HEMATOCRIT 24.7 % (36.0-45.00); MEAN CELL VOLUME 95.1 fL (80.00-100.00); MEAN CORPUSCULAR HGB CONC 33.7 g/dl (32.0-36.0); PLATELET COUNT 178 K/uL (150-450)
[2024-01-23 06:48] LABS: MEAN CORPUSCULAR HEMOGLOBIN 31.9 pg (27.00-32.0)
[2024-01-23 06:49] LABS: HEMOGLOBIN 8.3 g/dL (12.0-15.00)
[2024-01-23 08:35] VITALS: BP 95/57; O2SAT 97
[2024-01-23] MEDS ORDERED: POLYETHYLENE GLYCOL 3350 17 GM BLIST.PACK PO STA (10:05)
[2024-01-23 16:52] VITALS: BP 95/61; O2SAT 97
[2024-01-23 17:17] LABS: CALCIUM 8.6 mg/dL (8.5-10.1); CREATININE SERUM 1.39 mg/dL (0.55-1.02); GFR 36.96; POTASSIUM 5.8 mEq/L (3.5-5.1)
[2024-01-23 20:23] LABS: ob POSITIVE (NEGATIVE)
[2024-01-23] MEDS ORDERED: Cyanocobalamin/Mecobalamin 1 TAB.SL SL SCH (20:28)
[2024-01-24 02:40] VITALS: BP 122/88; O2SAT 100
[2024-01-24] MEDS ORDERED: CALCIUM GLUCONATE 100 MG/ML VIAL IV STA (08:09)
[2024-01-24] MEDS ORDERED: SODIUM POLYSTYRENE SULFONATE 30G/8 TSP PO STA (08:14)
[2024-01-24 08:36] VITALS: BP 130/84; O2SAT 98
[2024-01-24 11:55] LABS: HEMATOCRIT 31.7 % (36.0-45.00); HEMOGLOBIN 10.5 g/dL (12.0-15.00); MEAN CELL VOLUME 96.7 fL (80.00-100.00); MEAN CORPUSCULAR HGB CONC 33.1 g/dl (32.0-36.0); PLATELET COUNT 172 K/uL (150-450); RED BLOOD COUNT 3.28 M/uL (4.00-6.00); RED CELL DISTRIBUTION WIDTH 15.7 % (11.5-14.5)
[2024-01-24 12:26] LABS: CALCIUM 8.2 mg/dL (8.5-10.1); CREATININE SERUM 1.34 mg/dL (0.55-1.02); GFR 38.56; POTASSIUM 4.06 mEq/L (3.5-5.1)
[2024-01-24] MEDS ORDERED: SODIUM POLYSTYRENE SULFONATE 30G/8 TSP PO SCH (13:00)
[2024-01-24 16:24] VITALS: BP 105/73; O2SAT 95
[2024-01-25 00:52] VITALS: BP 101/58; O2SAT 100
[2024-01-25] MEDS ORDERED: MIDAZOLAM HCL 2 MG/2 ML VIAL IV ONE (07:45)
[2024-01-25] MEDS ORDERED: fentaNYL CITRATE 50 MCG/ML AMPUL IV PUSH ONE (07:45)
[2024-01-25 09:36] VITALS: BP 137/87; O2SAT 98
[2024-01-25] MEDS ORDERED: ORPHENADRINE CITRATE 30 MG/ML AMPUL IV SCH ×2 (10:08→21:00)
[2024-01-25] MEDS ORDERED: ORPHENADRINE CITRATE 30 MG/ML AMPUL IV STA (10:08)
[2024-01-25] MEDS ORDERED: PANTOPRAZOLE SODIUM 40 MG TABLET.DR PO NR (10:30)
[2024-01-25 16:05] VITALS: BP 102/67; O2SAT 98
[2024-01-26 01:24] VITALS: BP 132/90; O2SAT 100
[2024-01-26 08:18] LABS: HEMATOCRIT 30.9 % (36.0-45.00); HEMOGLOBIN 10.3 g/dL (12.0-15.00); MEAN CELL VOLUME 96.3 fL (80.00-100.00); MEAN CORPUSCULAR HEMOGLOBIN 32.1 pg (27.00-32.0); MEAN CORPUSCULAR HGB CONC 33.4 g/dl (32.0-36.0); PLATELET COUNT 186 K/uL (150-450); RED BLOOD COUNT 3.21 M/uL (4.00-6.00); RED CELL DISTRIBUTION WIDTH 15.7 % (11.5-14.5)
[2024-01-26 08:41] VITALS: BP 106/71; O2SAT 94
[2024-01-26] MEDS ORDERED: PANTOPRAZOLE SODIUM 40 MG TABLET.DR PO SCH (09:00)
[2024-01-26 16:43] VITALS: BP 111/63
[2024-01-26 21:52] VITALS: BP 110/70
[2024-01-27 01:40] VITALS: BP 129/83; O2SAT 95
[2024-01-27 08:28] VITALS: BP 120/69; O2SAT 96
[2024-01-27 17:23] VITALS: BP 133/81
[2024-01-28 01:47] VITALS: BP 114/70; O2SAT 100
[2024-01-28 07:18] LABS: HEMATOCRIT 29.4 % (36.0-45.00); HEMOGLOBIN 10.1 g/dL (12.0-15.00); RED BLOOD COUNT 3.11 M/uL (4.00-6.00)
[2024-01-28 08:37] VITALS: BP 114/72; O2SAT 100
[2024-01-28 15:47] VITALS: BP 103/59; BP 148/93; O2SAT 95
== END 2024-01-28 19:53 | disposition home or self-care (01) | DRG 812 ==
LOC: ER 14:50 → MEDI 22:29
PROVIDERS: General Practice; Internal Medicine; Internal Medicine Hematology & Oncology; ADMIT Student in an Organized Health Care Education/Training Program; ATTEND Student in an Organized Health Care Education/Training Program
PROC: BW21ZZZ Computerized Tomography (CT Scan) of Abdomen and Pelvis (ICD-10-PCS; principal; 2024-01-19)
PROC: BW24ZZZ Computerized Tomography (CT Scan) of Chest and Abdomen (ICD-10-PCS; 2024-01-19)
PROC: 30233N1 Transfusion of Nonautologous Red Blood Cells into Peripheral Vein, Percutaneous Approach (ICD-10-PCS; 2024-01-20)
DX: D64.9 Anemia, unspecified (principal); K92.2 Gastrointestinal hemorrhage, unspecified; I48.91 Unspecified atrial fibrillation; E53.8 Deficiency of other specified B group vitamins

== ENCOUNTER 2024-03-08 06:30 | Inpatient (IN) | payer OTHER ==
[~2024-03-08] VITALS: Ht 157.5 cm; Wt 81.6 kg
[2024-03-08] MEDS ORDERED: ZESTRIL10 M1 PO (06:50)
[2024-03-08] MEDS ORDERED: PROTONIX40 M1 PO (06:51)
[2024-03-08 09:38] LABS: HEMATOCRIT 40.8 % (36.0-45.00); HEMOGLOBIN 12.7 g/dL (12.0-15.00); MEAN CELL VOLUME 92.8 fL (80.00-100.00); MEAN CORPUSCULAR HEMOGLOBIN 28.9 pg (27.00-32.0); MEAN CORPUSCULAR HGB CONC 31.1 g/dl (32.0-36.0); PLATELET COUNT 235 K/uL (150-450); RED CELL DISTRIBUTION WIDTH 17.6 % (11.5-14.5)
[2024-03-08 09:48] LABS: ALBUMIN 3.5 gm/dL (3.4-5.0); BILIRUBIN TOTAL 0.82 mg/dL (0.3-1.2); CALCIUM 9.6 mg/dL (8.5-10.1); CREATININE SERUM 1.42 mg/dL (0.55-1.02); GFR 36.06; GLOBULINA 3.8 G/DL (2.4-3.5); POTASSIUM 4.26 mEq/L (3.5-5.1); TOTAL PROTEIN 7.3 gm/dL (6.4-8.2)
[2024-03-08 10:29] LABS: ABG PH 7.432 (7.35-7.45); ABG PO2 67.2 mmHg (80-100); ABG pCO2 40.2 mmHg (35-45); BASE EXCESS 1.8 mmol/l; BICARBONATE 26.2 mmol/l (23-25); SaO2 93.8 %; Tco2 27.4 mmol/l
[2024-03-08 10:38] LABS: allen test SATISFACTORY; o2 21 %; puncture site RADIAL RIGHT
[2024-03-08] MEDS ORDERED: NITROGLYCERIN IN 5 % DEXTROSE 50 MG/250 ML KIT IV ONE (14:00)
[2024-03-08] MEDS ORDERED: NITROGLYCERIN IN 5 % DEXTROSE 50 MG/250 ML BOTTLE IV ONE (14:02)
[2024-03-08] MEDS ORDERED: FUROsemide 20 MG/2 ML VIAL ONE (14:02)
[2024-03-08] MEDS ORDERED: FUROsemide 20 MG/2 ML VIAL IV ONE (14:15)
[2024-03-08] MEDS ORDERED: FUROsemide 20 MG/2 ML VIAL IV SCH (17:28)
[2024-03-08] MEDS ORDERED: ATORVASTATIN CALCIUM 40 MG TABLET PO SCH (17:29)
[2024-03-08] MEDS ORDERED: RIVAROXABAN 15 MG TABLET PO SCH (17:32)
[2024-03-08] MEDS ORDERED: AMIODARONE HCL 200 MG TABLET PO SCH (17:34)
[2024-03-08] MEDS ORDERED: SODIUM CHLORIDE 0.45 % 1,000 ML IV SCH (17:45)
[2024-03-08 21:03] LABS: INR 1.35; PARTIAL THROMBOPLASTIN TIME 33.7 SECONDS (22.0-34.0); PROTHROMBIN TIME 14.4 SECONDS (9.0-11.5)
[2024-03-08] MEDS ORDERED: METOPROLOL TARTRATE 50 MG TABLET PO SCH (21:05)
[2024-03-08 21:09] LABS: ALBUMIN 3.4 gm/dL (3.4-5.0); CALCIUM 9.4 mg/dL (8.5-10.1); CKMB 2.1 NG/ML (0.5-3.6); CREATININE SERUM 1.37 mg/dL (0.55-1.02); GFR 37.59; PHOSPHOROUS 3.4 mg/dL (2.5-4.9); POTASSIUM 3.96 mEq/L (3.5-5.1)
[2024-03-08 21:11] VITALS: BP 119/75; O2SAT 95
[2024-03-08 21:21] VITALS: BP 119/75
[2024-03-08 21:27] LABS: PH,URINE 7.5 (5.0-8.0); URINE APPEARANCE Clear; URINE BILIRRUBIN Negative (NEGATIVE); URINE BLOOD Trace; URINE COLOR Yellow; URINE GLUCOSE Negative (NEGATIVE); URINE KETONE Negative (NEGATIVE); URINE LEUKOCYTE Negative; URINE NITRATE Negative; URINE PROTEIN Negative (NEGATIVE); URINE UROBILINOGEN 0.2 E.U./dl
[2024-03-08 21:31] LABS: URINE BACTERIA 12.2 uL (0.0-1933); URINE EPITHELIAL CELLS 1.7 uL (0.0-38.8); URINE RBC 12.3 uL (0.0-20.8); URINE WBC 2.2 uL (0.0-23.2)
[2024-03-08 21:36] LABS: URINE CAST 0.14 uL (0.0-1.40)
[2024-03-08 22:43] VITALS: BP 127/85; O2SAT 97
[2024-03-09 01:29] VITALS: BP 126/69; O2SAT 97
[2024-03-09 12:16] VITALS: BP 113/75
[2024-03-09 14:00] VITALS: BP 86/73
[2024-03-09 17:40] VITALS: BP 160/80; O2SAT 97
[2024-03-09] MEDS ORDERED: PIPERACILLIN/TAZOBACTAM SODIUM 3.375 GM VIAL IV SCH (18:00)
[2024-03-09 21:08] VITALS: BP 90/70; O2SAT 97
[2024-03-10 00:37] VITALS: BP 106/81; O2SAT 97
[2024-03-10 07:23] LABS: CALCIUM 8.9 mg/dL (8.5-10.1); CREATININE SERUM 1.45 mg/dL (0.55-1.02); GFR 35.2; POTASSIUM 3.8 mEq/L (3.5-5.1)
[2024-03-10 07:24] LABS: HEMATOCRIT 35.8 % (36.0-45.00); MEAN CORPUSCULAR HEMOGLOBIN 30.4 pg (27.00-32.0); MEAN CORPUSCULAR HGB CONC 33.4 g/dl (32.0-36.0); PLATELET COUNT 220 K/uL (150-450); RED BLOOD COUNT 3.94 M/uL (4.00-6.00); RED CELL DISTRIBUTION WIDTH 17.3 % (11.5-14.5)
[2024-03-10 08:57] VITALS: BP 84/60
[2024-03-10] MEDS ORDERED: 0.9 % SODIUM CHLORIDE 1,000 ML IV SCH (13:00)
[2024-03-10] MEDS ORDERED: METHYLPREDNISOLONE SOD SUCC 40 MG VIAL IV SCH (13:00)
[2024-03-10 14:39] VITALS: BP 111/80
[2024-03-11 01:23] VITALS: BP 120/66
[2024-03-11 08:10] VITALS: BP 97/64
[2024-03-11 17:17] VITALS: BP 119/72; O2SAT 98
[2024-03-11] MEDS ORDERED: FAMOtidine 20 MG TABLET PO SCH (21:00)
[2024-03-12 02:01] VITALS: BP 90/62
[2024-03-12 06:35] LABS: HEMATOCRIT 36.7 % (36.0-45.00); HEMOGLOBIN 12.1 g/dL (12.0-15.00); MEAN CORPUSCULAR HEMOGLOBIN 30.1 pg (27.00-32.0); MEAN CORPUSCULAR HGB CONC 33.1 g/dl (32.0-36.0); PLATELET COUNT 219 K/uL (150-450); RED BLOOD COUNT 4.03 M/uL (4.00-6.00); RED CELL DISTRIBUTION WIDTH 16.9 % (11.5-14.5)
[2024-03-12 08:38] VITALS: BP 125/72
== END 2024-03-12 17:07 | disposition home or self-care (01) | DRG 291 ==
LOC: ER 06:33 → MEDJ 17:51
PROVIDERS: General Practice; ADMIT Student in an Organized Health Care Education/Training Program; ATTEND Student in an Organized Health Care Education/Training Program
PROC: BB24ZZZ Computerized Tomography (CT Scan) of Bilateral Lungs (ICD-10-PCS; principal; 2024-03-08)
PROC: B246ZZZ Ultrasonography of Right and Left Heart (ICD-10-PCS; 2024-03-08)
PROC: 4A12X4Z Monitoring of Cardiac Electrical Activity, External Approach (ICD-10-PCS; 2024-03-09)
DX: I13.0 Hypertensive heart and chronic kidney disease with heart failure and stage 1 through stage 4 chronic kidney disease, or unspecified chronic kidney disease (principal); I50.33 Acute on chronic diastolic (congestive) heart failure; J18.9 Pneumonia, unspecified organism; N18.9 Chronic kidney disease, unspecified; I48.91 Unspecified atrial fibrillation; E78.49 Other hyperlipidemia

== ENCOUNTER 2024-05-06 16:39 | Inpatient (IN) | payer OTHER ==
[~2024-05-06] VITALS: Wt 81.6 kg
[~2024-05-06 16:39] MED LIST changes: +PROTONIX40 M1 PO; +ZESTRIL10 M1 PO
[2024-05-06] MEDS ORDERED: TOPROL XL50 M1 PO (17:04)
[2024-05-06] MEDS ORDERED: ATORVASTATIN CA40 MG PO (17:04)
[2024-05-06] MEDS ORDERED: XARELTO10 M1 PO (17:04)
[2024-05-06] MEDS ORDERED: LASIX20 MG PO (17:04)
[2024-05-06] MEDS ORDERED: PACERONE200 MG PO (17:05)
[2024-05-06] MEDS ORDERED: PANTOPRAZOLE SO40 MG PO (17:05)
[2024-05-06] MEDS ORDERED: LEVALBUTEROL HCL 1.25 MG/3 ML SOLUTION IH ONE (17:45)
[2024-05-06] MEDS ORDERED: METHYLPREDNISOLONE SOD SUCC 125 MG VIAL IV ONE ×2 (17:45→23:15)
[2024-05-06] MEDS ORDERED: IPRATROPIUM/ALBUTEROL SULFATE 3 ML AMPUL.NEB IH ONE (17:45)
[2024-05-06] MEDS ORDERED: METHYLPREDNISOLONE SOD SUCC 125 MG VIAL ONE (18:05)
[2024-05-06 20:05] LABS: HEMATOCRIT 40.1 % (36.0-45.00); HEMOGLOBIN 12.6 g/dL (12.0-15.00); MEAN CELL VOLUME 89.3 fL (80.00-100.00); MEAN CORPUSCULAR HGB CONC 31.4 g/dl (32.0-36.0); PLATELET COUNT 231 K/uL (150-450); RED BLOOD COUNT 4.49 M/uL (4.00-6.00); RED CELL DISTRIBUTION WIDTH 17.3 % (11.5-14.5)
[2024-05-06 20:37] LABS: INR 1.23; PROTHROMBIN TIME 13.2 SECONDS (9.0-11.5)
[2024-05-06 20:47] LABS: ALBUMIN 3.4 gm/dL (3.4-5.0); BILIRUBIN TOTAL 0.95 mg/dL (0.3-1.2); CALCIUM 9.4 mg/dL (8.5-10.1); CREATININE SERUM 1.38 mg/dL (0.55-1.02); GFR 36.88; GLOBULINA 4.1 G/DL (2.4-3.5); POTASSIUM 4.65 mEq/L (3.5-5.1); TOTAL PROTEIN 7.5 gm/dL (6.4-8.2)
[2024-05-06 20:51] LABS: D DIMER 0.32 MG/L; PARTIAL THROMBOPLASTIN TIME 31.8 SECONDS (22.0-34.0)
[2024-05-06 21:45] LABS: URINE APPEARANCE Clear; URINE BILIRRUBIN Negative (NEGATIVE); URINE BLOOD Negative; URINE COLOR Yellow; URINE GLUCOSE Negative (NEGATIVE); URINE KETONE Negative (NEGATIVE); URINE LEUKOCYTE Negative; URINE NITRATE Negative
[2024-05-06 21:49] LABS: URINE EPITHELIAL CELLS 24.8 uL (0.0-38.8); URINE RBC 6.6 uL (0.0-20.8); URINE WBC 13.1 uL (0.0-23.2)
[2024-05-06 21:50] LABS: URINE CAST 0.58 uL (0.0-1.40); URINE PROTEIN 100 (NEGATIVE)
[2024-05-06] MEDS ORDERED: PANTOPRAZOLE SODIUM 40 MG/VIAL VIAL IV SCH (23:12)
[2024-05-06] MEDS ORDERED: NITROGLYCERIN IN 5 % DEXTROSE 250 ML IV SCH (23:15)
[2024-05-06] MEDS ORDERED: ACETAMINOPHEN 500 MG GEL..CAP PO PRN (23:15)
[2024-05-06 23:19] LABS: ABG PH 7.451 (7.35-7.45); ABG pCO2 35.5 mmHg (35-45); BASE EXCESS 0.7 mmol/l; BICARBONATE 24.2 mmol/l (23-25); SaO2 94.3 %; Tco2 25.3 mmol/l; o2 21 %
[2024-05-06 23:21] LABS: allen test SATISFACTORY; puncture site RADIAL LEFT
[2024-05-06 23:22] LABS: ABG PO2 68.3 mmHg (80-100)
[2024-05-07] VITALS (11 sets, daily range): BP systolic 111–165; BP diastolic 74–105; O2SAT 94–100
[2024-05-07] MEDS ORDERED: IPRATROPIUM BROMIDE 0.5 MG/2.5 ML AMPUL.NEB IH SCH
[2024-05-07] MEDS ORDERED: FUROsemide 20 MG/2 ML VIAL IV SCH (01:00)
[2024-05-07] MEDS ORDERED: FUROsemide 20 MG/2 ML VIAL ONE (04:51)
[2024-05-07] MEDS ORDERED: METHYLPREDNISOLONE SOD SUCC 125 MG VIAL ONE (04:52)
[2024-05-07] MEDS ORDERED: NITROGLYCERIN IN 5 % DEXTROSE 50 MG/250 ML BOTTLE IV ONE (04:52)
[2024-05-07] MEDS ORDERED: NITROGLYCERIN IN 5 % DEXTROSE 250 ML IV SCH (08:00)
[2024-05-07] MEDS ORDERED: IPRATROPIUM BROMIDE 0.5 MG/2.5 ML AMPUL.NEB IH ONE (08:17)
[2024-05-07] MEDS ORDERED: hydrALAZINE HCL 25 MG TABLET PO SCH (09:00)
[2024-05-07] MEDS ORDERED: RIVAROXABAN 15 MG TABLET PO SCH (09:00)
[2024-05-07] MEDS ORDERED: AMIODARONE HCL 200 MG TABLET PO SCH (09:00)
[2024-05-08] VITALS (8 sets, daily range): BP systolic 90–120; BP diastolic 64–83; O2SAT 90–99
[2024-05-08] MEDS ORDERED: FUROsemide 20 MG/2 ML VIAL IV SCH (09:00)
[2024-05-08] MEDS ORDERED: FUROsemide 20 MG TABLET PO NR (11:30)
[2024-05-09] MEDS ORDERED: FUROsemide 20 MG TABLET PO SCH (09:00)
== END 2024-05-08 21:47 | disposition home or self-care (01) | DRG 293 ==
LOC: ICU-2 → ER 16:40 → EDBD 18:42 → ER 18:42 → ICU-2 23:13 → SEC-K 23:13 → MEDJ 05-07 20:06
PROVIDERS: General Practice; ADMIT Internal Medicine; ATTEND Internal Medicine
PROC: 4A033R1 Measurement of Arterial Saturation, Peripheral, Percutaneous Approach (ICD-10-PCS; principal; 2024-05-06)
PROC: B246ZZZ Ultrasonography of Right and Left Heart (ICD-10-PCS; 2024-05-06)
PROC: BB24ZZZ Computerized Tomography (CT Scan) of Bilateral Lungs (ICD-10-PCS; 2024-05-06)
PROC: 3E0F7GC Introduction of Other Therapeutic Substance into Respiratory Tract, Via Natural or Artificial Opening (ICD-10-PCS; 2024-05-06)
PROC: 4A12X4Z Monitoring of Cardiac Electrical Activity, External Approach (ICD-10-PCS; 2024-05-06)
DX: I50.9 Heart failure, unspecified (principal); R09.02 Hypoxemia; R06.02 Shortness of breath

== ENCOUNTER 2024-06-04 12:13 | Emergency (ER) | payer OTHER ==
[~2024-06-04] VITALS: Ht 152.4 cm; Wt 85.7 kg
[~2024-06-04 12:13] MED LIST changes: +ATORVASTATIN CA40 MG PO; +LASIX20 MG PO; +PACERONE200 MG PO; +PANTOPRAZOLE SO40 MG PO; +XARELTO10 M1 PO
[2024-06-04 16:14] LABS: HEMATOCRIT 43.5 % (36.0-45.00); HEMOGLOBIN 14.1 g/dL (12.0-15.00); MEAN CELL VOLUME 88.5 fL (80.00-100.00); MEAN CORPUSCULAR HEMOGLOBIN 28.6 pg (27.00-32.0); MEAN CORPUSCULAR HGB CONC 32.3 g/dl (32.0-36.0); PLATELET COUNT 201 K/uL (150-450); RED BLOOD COUNT 4.92 M/uL (4.00-6.00); RED CELL DISTRIBUTION WIDTH 18.7 % (11.5-14.5)
[2024-06-04 16:19] LABS: PH,URINE 7.5 (5.0-8.0); URINE APPEARANCE Clear; URINE BILIRRUBIN Negative (NEGATIVE); URINE BLOOD Negative; URINE COLOR Yellow; URINE GLUCOSE Negative (NEGATIVE); URINE KETONE Negative (NEGATIVE); URINE LEUKOCYTE Negative; URINE NITRATE Negative; URINE PROTEIN Negative (NEGATIVE); URINE UROBILINOGEN 0.2 E.U./dl
[2024-06-04 16:21] LABS: URINE BACTERIA 242.2 uL (0.0-1933); URINE EPITHELIAL CELLS 14.5 uL (0.0-38.8); URINE WBC 11.2 uL (0.0-23.2)
[2024-06-04 16:24] LABS: URINE CAST 0.14 uL (0.0-1.40)
[2024-06-04 16:32] LABS: INR 1.46; PARTIAL THROMBOPLASTIN TIME 36.8 SECONDS (22.0-34.0)
[2024-06-04 16:38] LABS: PROTHROMBIN TIME 15.5 SECONDS (9.0-11.5)
[2024-06-04 16:39] LABS: ALBUMIN 3.6 gm/dL (3.4-5.0); BILIRUBIN TOTAL 1.07 mg/dL (0.3-1.2); CALCIUM 9.5 mg/dL (8.5-10.1); CREATININE SERUM 1.43 mg/dL (0.55-1.02); GFR 35.77; GLOBULINA 4.1 G/DL (2.4-3.5); POTASSIUM 3.81 mEq/L (3.5-5.1); TOTAL PROTEIN 7.7 gm/dL (6.4-8.2)
[2024-06-04 18:27] LABS: COVID-19 AG NEGATIVE (NEGATIVE)
[2024-06-04 18:28] LABS: INFLUENZA A AG NEGATIVE (NEGATIVE)
[2024-06-04] MEDS ORDERED: MOTION SICKNESS25 M1 PO (18:56)
[2024-06-04] MEDS ORDERED: MECLIZINE HCL 25 MG TABLET PO ONE ×2 (19:00)
== END 2024-06-04 19:09 | disposition home or self-care (01) ==
LOC: ER 12:13
PROVIDERS: General Practice
DX: R42 Dizziness and giddiness (principal); Z20.822 Contact with and (suspected) exposure to COVID-19; I10 Essential (primary) hypertension; Z88.6 Allergy status to analgesic agent

== ENCOUNTER 2024-06-13 21:59 | Inpatient (IN) | payer OTHER ==
[~2024-06-13] VITALS: Ht 152.4 cm; Wt 81.6 kg
[~2024-06-13 21:59] MED LIST changes: +MOTION SICKNESS25 M1 PO
--- NOTE | 2024-06-13 22:29 | NUR ---
SE RECIBE FENIMA ALERTA Y ORIENTADA X3 CUAL REFIERE ESTA PRESENTANDO PRESION ARTERIAL ELEVADA DESDE UNRULY Y DIFICULTAD RESPIRATORIA. BP MANUAL 160/100. SE REALIZA EKG Y SE PRESENTA A QUIEN REFIERE UBICAR OBS Y MONITOR CARDIACO.
[2024-06-13] MEDS ORDERED: NITROGLYCERIN 250 ML IV SCH (23:15)
[2024-06-13] MEDS ORDERED: FUROsemide 40 MG/4 ML VIAL IV ONE (23:15)
[2024-06-13] MEDS ORDERED: FUROsemide 40 MG/4 ML VIAL ONE (23:32)
[2024-06-13] MEDS ORDERED: NITROGLYCERIN IN 5 % DEXTROSE 50 MG/250 ML BOTTLE IV ONE (23:33)
[2024-06-14 00:51] LABS: BASO % 1.1 % (0.1-1.2); EOS # 0.23 (0.04-0.54); EOS % 5.2 % (0.7-7.0); HEMATOCRIT 40.7 % (34.1-44.9); HEMOGLOBIN 12.9 g/dL (11.2-15.7); LYMPH # 1.61 (1.18-3.74); LYMPH % 36.2 % (19.3-53.1); MEAN CORPUSCULAR HEMOGLOBIN 28.3 pg (25.6-32.2); MONO # 0.41 (0.24-0.82); MONO % 9.2 % (4.7-12.5); NEUT # 2.14 (1.56-6.13); NEUT % 48.1 % (34.0-71.1); PLATELET COUNT 206 K/uL (163-369); RED BLOOD COUNT 4.56 M/uL (3.93-5.22); RED CELL DISTRIBUTION WIDTH 17.6 % (11.6-14.4)
--- NOTE | 2024-06-14 00:53 | NUR ---
SE EDUCA PACIENTE SOBRE EL TX MEDICO Y ESTA REFIERE ENTENDER. SE CANALIZA EN MARIOO NAMAN # 20 PATENTE Y SE ADMINITRA MEDICAMENTOS FLOYD ORDEN MEDICA. SE GRETCHEN MUESTRAS DE LABORATORIOS Y SE ENVIAN. SE INSERTA GÓMEZ # 16 BAJO MEDIDAS ESTERIL Y SE AIDAN U/A. PENDIENTE A PLACA.
[2024-06-14 00:55] LABS: ALBUMIN 3.5 gm/dL (3.4-5.0); BILIRUBIN TOTAL 1.05 mg/dL (0.3-1.2); CALCIUM 9.2 mg/dL (8.5-10.1); CREATININE SERUM 1.5 mg/dL (0.55-1.02); GFR 33.85; GLOBULINA 4.1 G/DL (2.4-3.5); POTASSIUM 4.92 mEq/L (3.5-5.1); TOTAL PROTEIN 7.6 gm/dL (6.4-8.2)
[2024-06-14 01:06] LABS: PH,URINE 7.5 (5.0-8.0); URINE APPEARANCE Cloudy; URINE BILIRRUBIN Negative (NEGATIVE); URINE BLOOD Moderate; URINE COLOR Yellow; URINE GLUCOSE Negative (NEGATIVE); URINE KETONE Negative (NEGATIVE); URINE LEUKOCYTE Moderate; URINE NITRATE Negative; URINE PROTEIN 30 (NEGATIVE)
[2024-06-14 01:10] LABS: URINE EPITHELIAL CELLS 15.1 uL (0.0-38.8); URINE RBC 10.7 uL (0.0-20.8)
[2024-06-14 01:20] LABS: URINE BACTERIA > 9821.5 uL (0.0-1933); URINE CAST 1.32 uL (0.0-1.40)
[2024-06-14 02:16] LABS: ABG PH 7.414 (7.35-7.45); ABG PO2 82.8 mmHg (80-100); ABG pCO2 46.3 mmHg (35-45); BASE EXCESS 3.6 mmol/l; SaO2 96.4 %; Tco2 30.4 mmol/l
[2024-06-14 03:00] LABS: allen test SATISFACTORY; mode ROOM AIR; o2 32 %; puncture site RADIAL LEFT
--- NOTE | 2024-06-14 16:18 | NUR ---
PTE ALERTA Y ORIENTADA X3 ESFERAS EN CAMA CON BARANDAS ELEVADAS.CONECTADA A MONITOR CARDIACO Y OXIMETRIA SIN FAMILIAR AL MOMENTO DE LA VICENTE,DRIP DE TRIDIL @ 3ML/HR,CANULA NASAL @ 2LTS,PENDIENTE A EVALUACION DE DR RIGGS.
[2024-06-14] MEDS ORDERED: IPRATROPIUM BROMIDE 0.5 MG/2.5 ML AMPUL.NEB IH SCH (16:56)
[2024-06-14] MEDS ORDERED: FUROsemide 20 MG/2 ML VIAL IV SCH (16:57)
[2024-06-14] MEDS ORDERED: NITROGLYCERIN IN 5 % DEXTROSE 250 ML IV SCH (17:00)
[2024-06-14] MEDS ORDERED: ACETAMINOPHEN 325 MG TABLET PO PRN (17:00)
[2024-06-14] MEDS ORDERED: ACETAMINOPHEN 650 MG SUPP.RECT RECTAL PRN (17:00)
[2024-06-14] MEDS ORDERED: 0.9 % SODIUM CHLORIDE 1,000 ML IV SCH (17:00)
[2024-06-14] MEDS ORDERED: RIVAROXABAN 15 MG TABLET PO SCH (17:02)
[2024-06-14] MEDS ORDERED: ATORVASTATIN CALCIUM 40 MG TABLET PO SCH (17:02)
[2024-06-14 17:54] VITALS: BP 130/90
[2024-06-14 18:45] LABS: CHOL HDL RATIO 2.4 (0-5.0)
[2024-06-14 18:55] LABS: INR 1.41; PARTIAL THROMBOPLASTIN TIME 35.3 SECONDS (22.0-34.0)
[2024-06-14 19:06] LABS: FIBRINOGEN 341 mg/dL (187.0-446.0)
[2024-06-14 19:11] LABS: D DIMER < 0.19 MG/L
[2024-06-14 21:59] VITALS: BP 137/85
[2024-06-14 22:02] VITALS: O2SAT 100
[2024-06-14 23:35] VITALS: O2SAT 99
[2024-06-15] VITALS (9 sets, daily range): BP systolic 96–129; BP diastolic 63–97; O2SAT 90–100
[2024-06-15] MEDS ORDERED: METOLAZONE 5 MG TABLET PO NR (14:15)
[2024-06-16] VITALS (9 sets, daily range): BP systolic 96–139; BP diastolic 66–111; O2SAT 88–100
[2024-06-16 07:39] LABS: CALCIUM 9.3 mg/dL (8.5-10.1); CREATININE SERUM 1.46 mg/dL (0.55-1.02); GFR 34.92; POTASSIUM 4.16 mEq/L (3.5-5.1)
[2024-06-16] MEDS ORDERED: METOPROLOL SUCCINATE 50 MG TAB.SR.24H PO SCH (09:00)
[2024-06-16] MEDS ORDERED: NITROGLYCERIN IN 5 % DEXTROSE 50 MG/250 ML BOTTLE IV ONE (14:44)
[2024-06-17 01:30] VITALS: BP 108/68; O2SAT 90
[2024-06-17 01:41] VITALS: O2SAT 86
[2024-06-17 04:50] VITALS: O2SAT 90
[2024-06-17] MEDS ORDERED: FUROsemide 20 MG/2 ML VIAL IV SCH (09:00)
[2024-06-17 09:35] VITALS: O2SAT 89
[2024-06-17 09:50] VITALS: BP 94/67; O2SAT 98
== END 2024-06-17 16:38 | disposition home or self-care (01) | DRG 293 ==
LOC: ER 23:02 → MEDJ 06-14 17:18 → MEDI 06-14 17:18
PROVIDERS: General Practice; Internal Medicine; ADMIT Internal Medicine; ATTEND Internal Medicine
PROC: B24BYZZ Ultrasonography of Heart with Aorta using Other Contrast (ICD-10-PCS; principal; 2024-06-14)
PROC: 4A12X4Z Monitoring of Cardiac Electrical Activity, External Approach (ICD-10-PCS; 2024-06-14)
DX: I50.9 Heart failure, unspecified (principal); I50.30 Unspecified diastolic (congestive) heart failure

== ENCOUNTER 2024-08-31 18:54 | Inpatient (IN) | payer OTHER ==
[~2024-08-31] VITALS: Ht 152.4 cm; Wt 76.2 kg
[2024-08-31] MEDS ORDERED: PEPCID AC20 MG (20:02)
[2024-08-31] MEDS ORDERED: 0.9 % SODIUM CHLORIDE 1,000 ML IV STA (20:55)
[2024-08-31] MEDS ORDERED: NITROGLYCERIN IN 5 % DEXTROSE 50 MG/250 ML KIT IV STA (20:56)
[2024-08-31] MEDS ORDERED: ENALAPRILAT DIHYDRATE 1.25 MG/ML VIAL IV STA (20:57)
[2024-08-31] MEDS ORDERED: IPRATROPIUM/ALBUTEROL SULFATE 3 ML AMPUL.NEB IH SCH (21:00)
[2024-08-31 21:23] LABS: BASO % 0.8 % (0.1-1.2); EOS # 0.32 (0.04-0.54); EOS % 6.4 % (0.7-7.0); LYMPH # 1.42 (1.18-3.74); LYMPH % 28.2 % (19.3-53.1); MEAN PLATELET VOLUME 11.10 fl (9.4-12.4); MONO # 0.54 (0.24-0.82); MONO % 10.7 % (4.7-12.5); NEUT # 2.69 (1.56-6.13); NEUT % 53.5 % (34.0-71.1); RED CELL DISTRIBUTION WIDTH 17.0 % (11.6-14.4)
[2024-08-31 21:25] LABS: URINE APPEARANCE Clear; URINE BILIRRUBIN Negative (NEGATIVE); URINE BLOOD Negative; URINE COLOR Yellow; URINE GLUCOSE Negative (NEGATIVE); URINE KETONE Negative (NEGATIVE); URINE LEUKOCYTE Trace; URINE NITRATE Negative; URINE PROTEIN Negative (NEGATIVE); URINE UROBILINOGEN 1.0 E.U./dl
[2024-08-31 21:26] LABS: URINE BACTERIA 285.5 uL (0.0-1933); URINE EPITHELIAL CELLS 3.8 uL (0.0-38.8); URINE RBC 3.8 uL (0.0-20.8); URINE WBC 25.0 uL (0.0-23.2)
[2024-08-31 21:29] LABS: URINE CAST 0.00 uL (0.0-1.40)
[2024-08-31 21:49] LABS: D DIMER < 0.19 MG/L
[2024-08-31 21:50] LABS: ALT/SGPT 28.0 U/L (12-78); AST/SGOT 29.0 U/L (15-37); BILIRUBIN TOTAL 1.44 mg/dL (0.3-1.2); BUN CREA RATIO 10.0 (7.0-25.0); CREATININE SERUM 1.47 mg/dL (0.55-1.02); GFR 34.56; GLOBULINA 4.1 G/DL (2.4-3.5); GLUCOSE FASTING 113.0 mg/dL (65-100); OSMOLALITY SERUM 288.0 MOSM/KG (275-295)
[2024-08-31 21:56] LABS: ABG PH 7.425 (7.35-7.45); BICARBONATE 26.7 mmol/l (23-25)
[2024-08-31 22:01] LABS: INR 1.59
[2024-08-31 23:03] LABS: ABG PO2 56.4 mmHg (80-100); o2 21 %
[2024-09-01] VITALS (7 sets, daily range): BP systolic 91–147; BP diastolic 56–78; O2SAT 20–100
[2024-09-01] MEDS ORDERED: SODIUM CHLORIDE 0.45 % 1,000 ML IV SCH (07:15)
[2024-09-01] MEDS ORDERED: POTASSIUM CHLORIDE/D5W 20 MEQ/1,000 ML PIGGYBAG IV SCH (08:00)
[2024-09-01] MEDS ORDERED: METOPROLOL SUCCINATE 50 MG TAB.SR.24H PO SCH ×2 (08:15→09:00)
[2024-09-01] MEDS ORDERED: SODIUM CHLORIDE 0.45 % 500 ML IV SCH (08:30)
[2024-09-01] MEDS ORDERED: POTASSIUM CHLORIDE 20MEQ/100ML H2O PB IV SCH (08:30)
[2024-09-01] MEDS ORDERED: PANTOPRAZOLE SODIUM 40 MG TABLET.DR PO SCH (09:00)
[2024-09-01] MEDS ORDERED: RIVAROXABAN 15 MG TABLET PO SCH (09:00)
[2024-09-01] MEDS ORDERED: LISINOPRIL 10 MG TABLET PO SCH (09:00)
[2024-09-01] MEDS ORDERED: MECLIZINE HCL 25 MG TABLET PO SCH (09:00)
[2024-09-01] MEDS ORDERED: ATORVASTATIN CALCIUM 40 MG TABLET PO SCH (09:00)
[2024-09-01] MEDS ORDERED: ISOSORBIDE MONONITRATE 30 MG TABLET PO SCH (09:00)
[2024-09-01 09:37] LABS: ALT/SGPT 23.0 U/L (12-78); AST/SGOT 23.0 U/L (15-37); BILIRUBIN TOTAL 1.73 mg/dL (0.3-1.2); BILIRUBIN,CONJUGATED 0.67 mg/dL (0.0-0.2); CHOL HDL RATIO 2.2 (0-5.0); HDL 58.0 mg/dl (40-60); LDL 59.0 mg/dl (0-130); VLDL 12.0 (0-39)
[2024-09-01 10:35] LABS: CKMB 2.5 NG/ML (0.5-3.6)
[2024-09-01 16:22] LABS: COVID-19 AG NEGATIVE (NEGATIVE)
[2024-09-01] MEDS ORDERED: 0.9 % SODIUM CHLORIDE 500 ML IV ONE (22:30)
[2024-09-02] VITALS (11 sets, daily range): BP systolic 80–115; BP diastolic 50–87; O2SAT 95–100
[2024-09-02 06:12] LABS: BASO % 0.4 % (0.1-1.2); EOS # 0.19 (0.04-0.54); EOS % 4.2 % (0.7-7.0); LYMPH # 0.92 (1.18-3.74); LYMPH % 20.5 % (19.3-53.1); MEAN PLATELET VOLUME 11.30 fl (9.4-12.4); MONO # 0.56 (0.24-0.82); NEUT # 2.78 (1.56-6.13); NEUT % 62.2 % (34.0-71.1); RED CELL DISTRIBUTION WIDTH 16.7 % (11.6-14.4)
[2024-09-02 06:29] LABS: ERYTHROCYTE SEDIMENTATION RATE 31 mm/hr (0-30)
[2024-09-02 06:30] LABS: MONO % 12.5 % (4.7-12.5)
[2024-09-02 06:39] LABS: INR 1.62
[2024-09-02 06:55] LABS: URINE APPEARANCE Cloudy; URINE BILIRRUBIN Small (NEGATIVE); URINE BLOOD Large; URINE COLOR Orange; URINE GLUCOSE Negative (NEGATIVE); URINE KETONE Trace (NEGATIVE); URINE LEUKOCYTE Large; URINE NITRATE Negative; URINE UROBILINOGEN 1.0 E.U./dl
[2024-09-02 06:56] LABS: URINE CAST 6.59 uL (0.0-1.40); URINE EPITHELIAL CELLS 11.2 uL (0.0-38.8); URINE RBC 107.5 uL (0.0-20.8); URINE WBC 164.9 uL (0.0-23.2)
[2024-09-02 07:06] LABS: ALT/SGPT 23.0 U/L (12-78); AST/SGOT 23.0 U/L (15-37); BILIRUBIN TOTAL 1.14 mg/dL (0.3-1.2); BILIRUBIN,CONJUGATED 0.46 mg/dL (0.0-0.2); BUN CREA RATIO 9.0 (7.0-25.0); CHOL HDL RATIO 2.4 (0-5.0); CREATININE SERUM 1.47 mg/dL (0.55-1.02); GFR 34.56; GLOBULINA 2.8 G/DL (2.4-3.5); GLUCOSE FASTING 101.0 mg/dL (65-100); HDL 50.0 mg/dl (40-60); LDL 54.0 mg/dl (0-130); OSMOLALITY SERUM 289.0 MOSM/KG (275-295); VLDL 14.0 (0-39)
[2024-09-02 07:08] LABS: T4 FREE 1.76 NG/ML (0.76-1.46); TSH 2.62 uIU/mL (0.358-3.74)
[2024-09-02 07:17] LABS: URINE BACTERIA > 9821.5 uL (0.0-1933); URINE PROTEIN 100 (NEGATIVE)
[2024-09-02 07:18] LABS: URINE CRYSTALS MODERATE /HPF
[2024-09-02] MEDS ORDERED: CEFTRIAXONE SODIUM 2,000 MG VIAL IV SCH (12:41)
[2024-09-02] MEDS ORDERED: METOPROLOL SUCCINATE 25 MG TAB.SR.24H PO SCH (17:00)
[2024-09-03] VITALS (9 sets, daily range): BP systolic 105–129; BP diastolic 63–80; O2SAT 96–100
[2024-09-03 04:38] LABS: BASO % 0.7 % (0.1-1.2); EOS # 0.33 (0.04-0.54); EOS % 7.7 % (0.7-7.0); LYMPH # 0.95 (1.18-3.74); LYMPH % 22.1 % (19.3-53.1); MEAN PLATELET VOLUME 10.80 fl (9.4-12.4); MONO # 0.64 (0.24-0.82); NEUT # 2.32 (1.56-6.13); NEUT % 54.1 % (34.0-71.1); RED CELL DISTRIBUTION WIDTH 16.4 % (11.6-14.4)
[2024-09-03 04:42] LABS: MONO % 14.9 % (4.7-12.5)
[2024-09-03 05:31] LABS: ALT/SGPT 19.0 U/L (12-78); AST/SGOT 22.0 U/L (15-37); BILIRUBIN TOTAL 0.77 mg/dL (0.3-1.2); BUN CREA RATIO 10.0 (7.0-25.0); CREATININE SERUM 1.36 mg/dL (0.55-1.02); GFR 37.8; GLOBULINA 3.0 G/DL (2.4-3.5); GLUCOSE FASTING 99.0 mg/dL (65-100); OSMOLALITY SERUM 285.0 MOSM/KG (275-295)
[2024-09-03 10:31] LABS: CORTISOL 15.86 ug/dl
[2024-09-04] VITALS (8 sets, daily range): BP systolic 98–114; BP diastolic 58–77; O2SAT 96–100
[2024-09-04 07:08] LABS: URINE APPEARANCE Clear; URINE BILIRRUBIN Negative (NEGATIVE); URINE BLOOD Moderate; URINE COLOR Yellow; URINE GLUCOSE Negative (NEGATIVE); URINE KETONE Trace (NEGATIVE); URINE LEUKOCYTE Moderate; URINE NITRATE Negative; URINE PROTEIN 30 (NEGATIVE); URINE UROBILINOGEN 1.0 E.U./dl
[2024-09-04 07:11] LABS: URINE BACTERIA 244.7 uL (0.0-1933); URINE EPITHELIAL CELLS 11.0 uL (0.0-38.8); URINE RBC 168.5 uL (0.0-20.8); URINE WBC 377.9 uL (0.0-23.2)
[2024-09-04 07:15] LABS: URINE CAST 0.14 uL (0.0-1.40)
[2024-09-04 11:15] LABS: ABG PH 7.459 (7.35-7.45); ABG PO2 70.7 mmHg (80-100); BICARBONATE 28.4 mmol/l (23-25)
[2024-09-04 13:06] LABS: o2 21 %
[2024-09-05] VITALS (9 sets, daily range): BP systolic 99–112; BP diastolic 62–67; O2SAT 95–100
[2024-09-05 06:44] LABS: BASO % 0.9 % (0.1-1.2); EOS # 0.29 (0.04-0.54); EOS % 6.5 % (0.7-7.0); LYMPH # 0.87 (1.18-3.74); LYMPH % 19.5 % (19.3-53.1); MEAN PLATELET VOLUME 11.20 fl (9.4-12.4); MONO # 0.60 (0.24-0.82); NEUT # 2.64 (1.56-6.13); NEUT % 59.2 % (34.0-71.1); RED CELL DISTRIBUTION WIDTH 16.4 % (11.6-14.4)
[2024-09-05 06:56] LABS: MONO % 13.5 % (4.7-12.5)
[2024-09-05 07:40] LABS: ALT/SGPT 19.0 U/L (12-78); AST/SGOT 22.0 U/L (15-37); BILIRUBIN TOTAL 0.59 mg/dL (0.3-1.2); BUN CREA RATIO 11.0 (7.0-25.0); CREATININE SERUM 1.22 mg/dL (0.55-1.02); GFR 42.85; GLOBULINA 3.0 G/DL (2.4-3.5); GLUCOSE FASTING 96.0 mg/dL (65-100); OSMOLALITY SERUM 289.0 MOSM/KG (275-295)
[2024-09-06] VITALS (9 sets, daily range): BP systolic 92–126; BP diastolic 54–86; O2SAT 98–100
[2024-09-07] VITALS (10 sets, daily range): BP systolic 93–150; BP diastolic 54–82; O2SAT 88–100
[2024-09-08] VITALS (8 sets, daily range): BP systolic 91–124; BP diastolic 53–77; O2SAT 89–100
[2024-09-08 07:25] LABS: BASO % 1.9 % (0.1-1.2); EOS # 0.41 (0.04-0.54); EOS % 11.0 % (0.7-7.0); LYMPH # 1.11 (1.18-3.74); LYMPH % 29.8 % (19.3-53.1); MEAN PLATELET VOLUME 11.40 fl (9.4-12.4); MONO # 0.52 (0.24-0.82); NEUT # 1.60 (1.56-6.13); NEUT % 43.0 % (34.0-71.1); RED CELL DISTRIBUTION WIDTH 15.9 % (11.6-14.4)
[2024-09-08 07:38] LABS: MONO % 14.0 % (4.7-12.5)
[2024-09-08 08:14] LABS: ALT/SGPT 21.0 U/L (12-78); AST/SGOT 29.0 U/L (15-37); BILIRUBIN TOTAL 0.46 mg/dL (0.3-1.2); BUN CREA RATIO 13.0 (7.0-25.0); CREATININE SERUM 1.44 mg/dL (0.55-1.02); GFR 35.39; GLOBULINA 3.4 G/DL (2.4-3.5); GLUCOSE FASTING 90.0 mg/dL (65-100); OSMOLALITY SERUM 292.0 MOSM/KG (275-295)
[2024-09-08] MEDS ORDERED: AMOX-CLAV 500-1 EACH PO (12:49)
[2024-09-08] MEDS ORDERED: INTESTINEX680 M1 PO (12:49)
[2024-09-08] MEDS ORDERED: FUROSEMIDE20 MG PO (12:50)
== END 2024-09-08 22:56 | disposition home or self-care (01) | DRG 292 ==
LOC: ER 18:58 → ICU-2 09-01 08:16 → SEC-K 09-02 13:16 → MEDI 09-02 13:17
PROVIDERS: Internal Medicine; Internal Medicine Infectious Disease; ADMIT Internal Medicine; ATTEND Internal Medicine
DX: I50.9 Heart failure, unspecified (principal); N39.0 Urinary tract infection, site not specified; R09.02 Hypoxemia; I48.91 Unspecified atrial fibrillation; N18.9 Chronic kidney disease, unspecified; I11.0 Hypertensive heart disease with heart failure

== ENCOUNTER 2025-01-29 02:08 | Emergency (ER) | payer OTHER ==
[~2025-01-29] VITALS: Ht 152.4 cm; Wt 81.6 kg
[~2025-01-29 02:08] MED LIST changes: +AMOX-CLAV 500-1 EACH PO; +INTESTINEX680 M1 PO; +PEPCID AC20 MG
[2025-01-29] MEDS ORDERED: XARELTO15 MG (02:16)
[2025-01-29] MEDS ORDERED: CAPTOPRIL 25 MG TABLET PO STA (03:16)
[2025-01-29 04:28] LABS: BASO % 0.9 % (0.1-1.2); EOS # 0.26 (0.04-0.54); EOS % 5.8 % (0.7-7.0); LYMPH # 1.68 (1.18-3.74); LYMPH % 37.5 % (19.3-53.1); MEAN PLATELET VOLUME 10.80 fl (9.4-12.4); MONO # 0.42 (0.24-0.82); MONO % 9.4 % (4.7-12.5); NEUT # 2.08 (1.56-6.13); NEUT % 46.4 % (34.0-71.1); RED CELL DISTRIBUTION WIDTH 13.9 % (11.6-14.4)
[2025-01-29 05:02] LABS: ALT/SGPT 21.0 U/L (12-78); AST/SGOT 20.0 U/L (15-37); BILIRUBIN TOTAL 0.69 mg/dL (0.3-1.2); BUN CREA RATIO 11.0 (7.0-25.0); CREATININE SERUM 1.38 mg/dL (0.55-1.02); GFR 37.17; GLOBULINA 4.1 G/DL (2.4-3.5); GLUCOSE FASTING 111.0 mg/dL (65-100); OSMOLALITY SERUM 292.0 MOSM/KG (275-295)
[2025-01-29] MEDS ORDERED: LABETALOL HCL 20MG/4ML SYRINGE IV STA ×2 (05:52→06:45)
[2025-01-29] MEDS ORDERED: LABETALOL HCL 100 MG/20 ML ML ONE ×2 (05:56→06:38)
[2025-01-29 07:37] VITALS: BP 128/82; O2SAT 95
== END 2025-01-29 11:52 | disposition home or self-care (01) ==
LOC: ER 02:09
PROVIDERS: General Practice
DX: I16.0 Hypertensive urgency (principal); I10 Essential (primary) hypertension; Z88.6 Allergy status to analgesic agent
CPT/HCPCS: 36415; 71046; 93005; 96365; 99283; J3490